=== PATIENT | female | born 1960 | race Caucasian/White ===

== ENCOUNTER 2023-07-15 13:52 | Observation (INO) ==
[2023-07-15] MEDS ORDERED: PHARMACY CONSULT - VANCOMYCIN XX SCH ×2 (15:00→17:00)
[2023-07-15 15:18] LABS: BASOPHILS # (AUTO) 0.1 X10^3/uL (0.0-0.1); BASOPHILS % (AUTO) 1.4 % (0.2-1.0); EOSINOPHILS # (AUTO) 0.2 x10^3/uL (0.0-0.2); EOSINOPHILS % (AUTO) 1.7 % (0.9-2.9); HEMATOCRIT 48.1 % (36.0-47.0); HEMOGLOBIN 15.7 g/dL (12.0-16.0); LYMPHOCYTES # (AUTO) 2.4 X10^3/uL (1.3-2.9); LYMPHOCYTES % (AUTO) 24.4 % (21.0-51.0); MEAN CORPUSCULAR HGB CONC 32.6 g/dL (33.0-35.0); MEAN CORPUSCULAR VOLUME 89.2 fL (80.0-100.0); MEAN PLATELET VOLUME 8.6 fL (7.4-11.0); MONOCYTES # (AUTO) 0.7 x10^3/uL (0.3-0.8); MONOCYTES % (AUTO) 6.9 % (0.0-13.0); NEUTROPHILS # (AUTO) 6.5 x10^3/uL (2.2-4.8); NEUTROPHILS % (AUTO) 65.6 % (42.0-75.0); PLATELET COUNT 288 X10^3/uL (150.0-450.0); RED BLOOD COUNT 5.39 X10^6/uL (3.5-5.4); RED CELL DISTRIBUTION WIDTH 15.1 % (11.6-16.5); WHITE BLOOD COUNT 9.9 X10^3/uL (3.6-10.0)
[2023-07-15 15:27] LABS: ALANINE AMINOTRANSFERASE 133 Units/L (12-78); ALBUMIN 3.6 g/dL (3.4-5.0); ALKALINE PHOSPHATASE 141 Units/L (46-116); ASPARTATE AMINO TRANSFERASE 100 Units/L (15-37); BLOOD UREA NITROGEN 11 mg/dL (7-18); CARBON DIOXIDE 28.1 mmol/L (21-32); CHLORIDE 103 mmol/L (98-107); COR NA(FOR HYPERGLY) 139 mmol/L (136-145); CREATININE 0.64 mg/dL (0.55-1.02); GLUCOSE 125 mg/dL (65-99); POTASSIUM 4.2 mmol/L (3.5-5.1); SODIUM 138 mmol/L (136-145); eGFR NON BLACK RACES > 60 (>60)
[2023-07-15] MEDS ORDERED: FLEXERIL TAB 10 MG PO PRN (16:23)
[2023-07-15] MEDS ORDERED: NovoLIN R (or HumuLIN R) SC PRN (16:29)
[2023-07-15 16:49] VITALS: BMI 38.0
[2023-07-15] MEDS ORDERED: LASIX PO SCH (17:00)
--- NOTE | 2023-07-15 17:30 | NOTE.SOAP ---
Soap Note Note for Day of Date of Exam: 07/15/23 Subjective Data Subjective Data: 62F presenting wiht a painful absess to the lateral aspect of her left foot. It developped not so long ago and she was seen by Dr. Walters in the office. It's so painful that he couldnt do the procedure in the office. She recently went to [facility] in the ER where a CTA was done and shown to have three vessel runoff to bilateral feet. An MRI and CTA was ordered in the hospital. Patient denies any constitutional symptoms at this time Objective Data Objective Data: Boggy spot noted on the lateral aspect of the left foot just lateral to the 5th metatarsal head. No crepitus or malodor or purulence at this time. There is an overlying hyperkeratotic tissuewith a possible wound. Feet are cold to touch but pulses are palpation. Neurovascular statuts intact Assessment Assessment: 62F with an abscess and cellulitis to the left foot Plan Plan: Patient seen bedside this afternoon. Explained the treatmetn options in great detail including the risks and benefits. Plan is to take the patient to the operating room tomorrow for an I&D. Patient can probably go home afterward. Patient on IV antibiotics. Pending recs from Vascular, appreciated. Patient will be NPO after midnight and is scheduled for an I&D of the left foot tomorrow at 11am
[2023-07-15] MEDS: LR 1,000 ML IV 1,000 ML IV SCH (18:29)
--- NOTE | 2023-07-15 19:04 | CT ---
EXAM: CTA BILATERAL LOWER EXTREMITIES WITHOUT AND WITH INTRAVENOUS CONTRASTHISTORY: Abscess. Question of lower extremity ischemia.TECHNIQUE: Spiral axial CT images are obtained through the distal abdomen, pelvis and bilateral lower extremities without and with the administration of intravenous contrast. Three-dimensional coronal, sagittal, and oblique images are reformatted. 3D, vascular images are reformatted.DOSIMETRY: Total DLP 1867.93 mGycm; CTDI 71.48 mGyCOMPARISON: None available.FINDINGS:CT ABDOMEN AND PELVIS: The patient is status post cholecystectomy. The liver, spleen, pancreas, and kidneys appear grossly unremarkable. Approximately 1.7 cm x 1.4 cm nonspecific right adrenal nodule (39 HU), and approximately 1.5 cm x 1.3 cm nonspecific left adrenal nodule (43 HU) which may represent an adrenal adenomas or metastatic nodules in the appropriate clinical setting; DDX includes adrenal adenocarcinomas, and pheochromocytomas. Consider follow-up evaluation with dedicated adrenal MRI for further characterization as clinically warranted.The uterus and adnexa appear grossly unremarkable for a CT scan. Consider follow-up dedicated imaging as clinically warranted. The urinary bladder is normal in size and contour. There is no free fluid, free air, herniation, mass lesion, or lymphadenopathy seen. No bony fracture deformities are seen.CTA PELVIS: There is severe aortoiliac atherosclerosis marked by calcified and noncalcified mural plaques. No distal aortic pseudoaneurysm, aneurysm, dissection, or occlusion is seen. There are multifocal mild segmental luminal stenoses seen within the aorta and iliac vessels, but no potentially hemodynamically significant or greater than 50% luminal stenosis is seen.There is severe calcified atherosclerotic mural plaques seen at the celiac axis, SMA, and bilateral renal artery origins (right greater than left) with suggestion of potentially hemodynamically significant (or greater than 50%) stenoses at the right renal artery origin. Axial image 26-32, series 7; coronal image 57-60, series 9. Clinical correlation is advised.CTA LOWER EXTREMITIES: The common femoral arteries, superficial femoral arteries, and profunda femoral arteries are patent bilaterally. The popliteal arteries and proximal trifurcation runoff vessels are unremarkable. The middle and distal trifurcation runoff vessels are excluded from [id number].IMPRESSION:1. Severe aortoiliac atherosclerosis marked by calcified and noncalcified mural plaques.2. Multifocal mild segmental luminal stenoses seen within the aorta and iliac vessels, but no potentially hemodynamically significant or greater than 50% luminal stenosis is seen.3. No distal aortic pseudoaneurysm, aneurysm, dissection, or occlusion is seen.4. Severe calcified atherosclerotic mural plaques seen at the celiac axis, SMA, and bilateral renal artery origins (right greater than left) with suggestion of potentially hemodynamically significant (or greater than 50%) stenoses at the right renal artery origin. Axial image 26-32, series 7; coronal image 57-60, series 9. Clinical correlation is advised.5. Bilateral [employer], SFA, PFA, popliteal arteries, and proximal trifurcation runoff vessels are widely patent.6. Approximately 1.7 cm x 1.4 cm nonspecific right adrenal nodule (39 HU), and approximately 1.5 cm x 1.3 cm nonspecific left adrenal nodule (43 HU) which may represent an adrenal adenomas or metastatic nodules in the appropriate clinical setting; DDX includes adrenal adenocarcinomas, and pheochromocytomas. Consider follow-up evaluation with dedicated adrenal MRI for further characterization as clinically warranted.THIS IS AN ELECTRONICALLY VERIFIED FINAL REPORT07/15/2023 7:00 PM - Electronically signed by Tawana Bergman
[2023-07-15] MEDS: CORDARONE TAB 200 MG PO SCH (19:16)
[2023-07-15] MEDS: LASIX PO SCH (19:16)
[2023-07-15] MEDS: VANCOMYCIN IV *PREMIX 1 G/200 ML BAG 1 G/200 ML PIGGYBACK IV SCH (19:16)
[2023-07-15] MEDS ORDERED: PULMICORT NEB TX 0.5 MG NEB ONE (19:33)
[2023-07-15] MEDS ORDERED: PROVENTIL NEB TX 0.083% 2.5MG/ 3ML ONE (19:33)
[2023-07-15] MEDS: PROVENTIL NEB TX 0.083% 2.5MG/ 3ML NEB SCH (20:10)
[2023-07-15] MEDS: PULMICORT NEB TX 0.5 MG NEB SCH (20:10)
[2023-07-15] MEDS: OMNIPAQUE 350 mg/mL 100 mL BTL 100 ML ONE (20:25)
[2023-07-15] MEDS: OMNIPAQUE 350 mg/mL 50 mL BTL 50 ML ONE (20:25)
[2023-07-15] MEDS: NS 100 ML IV 100 ML ONE (20:25)
[2023-07-15] MEDS: LOPRESSOR TAB 50 MG PO SCH (20:35)
[2023-07-15] MEDS: DESYREL PO SCH (20:35)
[2023-07-15] MEDS ORDERED: PROVENTIL NEB TX 0.083% 2.5MG/ 3ML NEB SCH (21:00)
[2023-07-15] MEDS: CYMBALTA PO SCH (22:06)
--- NOTE | 2023-07-16 00:49 | DR.H&P ---
H&P History & Physical for Day of: H&P Date: 07/15/23 Chief Complaint Chief Complaint: Non -healing wound to the left plantar 5th metatarsal head. Allergies Allergies Allergy/AdvReac Type Severity Reaction Status Date / Time sulfamethoxazole Allergy Verified 07/15/23 16:23 [From Bactrim] trimethoprim [From Bactrim] Allergy Verified 07/15/23 16:23 History of Present Illness History of Present Illness: Female with non-healing wound to the left fifth meta tarsal plantar surface. Patient is diabetic. Mild redness around this area. Patient seen in the emergency room in [place] greater than 1 a week ago and at that time was transferred urgently via helicopter to [place] with question of arterial insufficiency. Patient was seen and treated but no arterial intervention performed. Patient seen in the office of Dr. Walters today with these findings and was transferred to our hospital at [place] for admission. Patient has a history of diabetes, history of myocardial infarction , multiple coronary stents and tobacco abuse . Has COPD, depression Past Medical History Past Medical History: COPD, Coronary Artery Disease, Depression, Diabetes, Dyslipidemia and [place] Past Surgical History Surgical History: Cholecystectomy and Other Additional Surgical History: Multiple ooronary stents Family History Family Medical History: [place], Coronary Artery Disease and Hypertension Social History Does patient currently use any type of tobacco product: Yes Have you used tobacco products in the last 12 months: Yes Type of Tobacco Use: Cigarettes How many years tobacco product used: 1 Alcohol Use: None Drug Use: None Medications Home Medications: Home Medications Medication Instructions Recorded Confirmed Type albuterol 90 mcg/actuation aerosol 90 mcg inhalation BID PRN 07/15/23 07/15/23 History inhaler amiodarone 200 mg tablet 200 mg PO BID 07/15/23 07/15/23 History apixaban 5 mg tablet (Eliquis) 5 mg PO BID 07/15/23 07/15/23 History atorvastatin 40 mg tablet (Lipitor) 40 mg PO QDAY 07/15/23 07/15/23 History bupropion HCl 100 mg tablet,12 hr 200 mg PO QDAY 07/15/23 07/15/23 History sustained-release (Wellbutrin SR) clopidogrel 75 mg tablet (Plavix) 75 mg PO QDAY 07/15/23 07/15/23 History cyclobenzaprine 10 mg tablet 10 mg PO TID PRN muscle spasm 07/15/23 07/15/23 History diltiazem HCl 120 mg tablet 120 mg PO QDAY 07/15/23 07/15/23 History doxycycline hyclate 100 mg capsule 100 mg PO BID 07/15/23 07/15/23 History duloxetine 20 mg capsule,delayed 20 mg PO BID 07/15/23 07/15/23 History release sprinkle furosemide 20 mg tablet (Lasix) 20 mg PO BID 07/15/23 07/15/23 History isosorbide mononitrate 30 mg 15 mg PO QAM 07/15/23 07/15/23 History tablet,extended release 24 hr meloxicam 7.5 mg tablet 7.5 mg PO QDAY 07/15/23 07/15/23 History metformin 850 mg tablet 850 mg PO QDAY 07/15/23 07/15/23 History metoprolol tartrate 50 mg tablet 50 mg PO BID 07/15/23 07/15/23 History paroxetine HCl 20 mg tablet 20 mg PO QDAY 07/15/23 07/15/23 History potassium chloride 10 mEq 10 meq PO QDAY 07/15/23 07/15/23 History capsule,extended release pramipexole 0.5 mg tablet 1 mg PO QDAY 07/15/23 07/15/23 History tiotropium 2.5 mcg-olodaterol 2.5 1 puff inhalation QDAY 07/15/23 07/15/23 History mcg/actuation mist for inhalation (Stiolto Respimat) trazodone 50 mg tablet 50 mg PO BID 07/15/23 07/15/23 History Labs 07/15/23 15:05 07/15/23 15:05 Labs: Laboratory WBC 9.9 X10^3/uL (3.6-10.0) 07/15/23 15:05 RBC 5.39 X10^6/uL (3.5-5.4) 07/15/23 15:05 Hgb 15.7 g/dL (12.0-16.0) 07/15/23 15:05 Hct 48.1 % (36.0-47.0) H 07/15/23 15:05 MCV 89.2 fL (80.0-100.0) 07/15/23 15:05 MCH 29.0 pg (27.0-34.0) 07/15/23 15:05 MCHC 32.6 g/dL (33.0-35.0) L 07/15/23 15:05 RDW 15.1 % (11.6-16.5) 07/15/23 15:05 Plt Count 288 X10^3/uL (150.0-450.0) 07/15/23 15:05 MPV 8.6 fL (7.4-11.0) 07/15/23 15:05 Neut % (Auto) 65.6 % (42.0-75.0) 07/15/23 15:05 Lymph % (Auto) 24.4 % (21.0-51.0) 07/15/23 15:05 [place] % (Auto) 6.9 % (0.0-13.0) 07/15/23 15:05 Eos % (Auto) 1.7 % (0.9-2.9) 07/15/23 15:05 Baso % (Auto) 1.4 % (0.2-1.0) H 07/15/23 15:05 Neut # (Auto) 6.5 x10^3/uL (2.2-4.8) H 07/15/23 15:05 Lymph # (Auto) 2.4 X10^3/uL (1.3-2.9) 07/15/23 15:05 [place] # (Auto) 0.7 x10^3/uL (0.3-0.8) 07/15/23 15:05 Eos # (Auto) 0.2 x10^3/uL (0.0-0.2) 07/15/23 15:05 Baso # (Auto) 0.1 X10^3/uL (0.0-0.1) 07/15/23 15:05 Absolute Nucleated RBC 0.0 /100WBC 07/15/23 15:05 Sodium 138 mmol/L (136-145) 07/15/23 15:05 Corrected Sodium 139 mmol/L (136-145) 07/15/23 15:05 Potassium 4.2 mmol/L (3.5-5.1) 07/15/23 15:05 Chloride 103 mmol/L (98-107) 07/15/23 15:05 Carbon Dioxide 28.1 mmol/L (21-32) 07/15/23 15:05 BUN 11 mg/dL (7-18) 07/15/23 15:05 Creatinine 0.64 mg/dL (0.55-1.02) 07/15/23 15:05 Est GFR (MDRD) Af Amer > 60 (>60) 07/15/23 15:05 Est GFR (MDRD) Non-Af > 60 (>60) 07/15/23 15:05 Glucose 125 mg/dL (65-99) H 07/15/23 15:05 POC Glucose (mg/dL) 131 mg/dL (65-99) H 07/15/23 20:35 Calcium 9.0 mg/dL (8.5-10.1) 07/15/23 15:05 Corrected Calcium TNP 07/15/23 15:05 Total Bilirubin 0.40 mg/dL (0.2-1.0) 07/15/23 15:05 AST 100 Units/L (15-37) H 07/15/23 15:05 ALT 133 Units/L (12-78) H 07/15/23 15:05 Alkaline Phosphatase 141 Units/L (46-116) H 07/15/23 15:05 Total Protein 8.0 g/dL (6.4-8.2) 07/15/23 15:05 Albumin 3.6 g/dL (3.4-5.0) 07/15/23 15:05 Globulin 4.4 g/dL (2.5-4.5) 07/15/23 15:05 Albumin/Globulin Ratio 0.8 Ratio (1.1-2.1) L 07/15/23 15:05 Review of Systems Constitutional: See HPI Eyes: No Symptoms Reported ENT: No Symptoms Reported Respiratory: See HPI Cardiovascular: See HPI Gastrointestinal: See HPI Genitourinary: No Symptoms Reported Musculoskeletal: No Symptoms Reported Skin: No Symptoms Reported Neurological: No Symptoms Reported Physical Exam Vital Signs: Vital Signs Temperature 97.7 F Pulse Rate [Bilateral Radial] 59 Pulse Rate [Bilateral Radial] 69 Pulse Rate [Bilateral Radial] 76 Pulse Rate [Bilateral Radial] 70 Pulse Rate [Bilateral Radial] 69 Pulse Rate [Bilateral Radial] 68 Pulse Rate [Bilateral Radial] 63 Pulse Rate [Bilateral Radial] 64 Pulse Rate 68 Pulse Rate 70 Pulse Rate 67 Respiratory Rate 24 Respiratory Rate 26 Respiratory Rate 23 Respiratory Rate 25 Respiratory Rate 27 Respiratory Rate 25 Respiratory Rate 23 Respiratory Rate 20 Respiratory Rate 20 Respiratory Rate 22 Blood Pressure [Left Arm] 127/60 Blood Pressure [Left Arm] 160/79 Blood Pressure [Left Arm] 143/70 Blood Pressure [Left Arm] 161/79 Blood Pressure [Left Arm] 158/91 Blood Pressure [Left Arm] 189/89 Blood Pressure [Left Arm] 187/91 Blood Pressure [Left Arm] 171/86 Blood Pressure 158/91 Blood Pressure 158/91 O2 Sat by Pulse Oximetry 96 O2 Sat by Pulse Oximetry 95 O2 Sat by Pulse Oximetry 96 O2 Sat by Pulse Oximetry 100 O2 Sat by Pulse Oximetry 100 O2 Sat by Pulse Oximetry 98 O2 Sat by Pulse Oximetry 98 O2 Sat by Pulse Oximetry 99 O2 Sat by Pulse Oximetry 100 O2 Sat by Pulse Oximetry 100 O2 Sat by Pulse Oximetry 98 CTA - diffuse aorto-iliac artery disease , no significant obstruction of iliac arteries, No significant stenosis of arteries either leg with 3 vessel runoff both legs. Oriented: Normal, Time, Person and Place Eyes: Normal Ear: Normal Nose: Normal Throat: Normal Respiratory: Clear Throughout Cardiovascular: Other (Hx of [place] and at least 5 coronary stents , palpable femoral pulses bilaterally, palpable posterior tibial arteries bilaterally) : Normal Auscultation: Bowel Sounds: Normal Palpation: Normal Tenderness: Normal Skin: Normal Musculoskeletal: Normal Psychiatric: Normal Mood Description: Calm Affect: Normal Assessment/Plan (1) Diabetic ulcer of left foot: Status: Acute Plan: IV antibiotics. Consulted Podiatry and they are planning debridement . No obvious correctable arterial lesion (2) Cellulitis of left foot: Status: Acute Plan: IV antibiotics (3) Type 2 diabetes mellitus without complications: Status: Acute (4) Old myocardial infarction: Status: Acute Plan: home meds (5) Hyperlipidemia: Status: Acute Plan: home meds (6) Chronic obstructive pulmonary disease, unspecified: Status: Acute Plan: home meds (7) Depression: Status: Acute Plan: home meds (8) Essential (primary) hypertension: Status: Acute Plan: home meds (9) Tobacco abuse: Status: Acute Plan: [place] her to quit smoking . Explained the cardiovascular risks Review H&P Reviewed: Yes Patient was examined?: Yes
[2023-07-16] MEDS ORDERED: HIBICLENS WASH ONE (01:38)
[2023-07-16] MEDS: HIBICLENS WASH EXT ONE (02:23)
[2023-07-16] MEDS: NICOTINE PATCH TD SCH (02:24)
[2023-07-16] MEDS: CARDIZEM CD 120 MG 24-HR PO SCH (08:20)
[2023-07-16] MEDS ORDERED: DUONEB 0.5 MG/3 MG (3 mL) NEB SCH (09:00)
[2023-07-16] MEDS ORDERED: STERILE WATER IRRIGATION IR ONE (10:18)
[2023-07-16] MEDS: IMDUR PO SCH (10:19)
[2023-07-16] MEDS: LIPITOR TAB 40 MG PO SCH (10:20)
[2023-07-16] MEDS: MICRO K EXTEN CAP 10 MEQ PO SCH (10:20)
[2023-07-16] MEDS: PLAVIX PO SCH (10:20)
[2023-07-16] MEDS: PATIENT'S HOME MEDICATION PO SCH (10:21)
[2023-07-16] MEDS: MIRAPEX TAB 1 MG PO SCH (10:21)
[2023-07-16] MEDS: PAXIL PO SCH (10:21)
[2023-07-16] MEDS: ANCEF VIAL 1 GRAM ONE (11:09)
[2023-07-16] MEDS: NS 100 ML IV 100 ML ONE (11:09)
--- NOTE | 2023-07-16 11:10 | EKG ---
Test Reason : surgical procedure Blood Pressure : */* mmHG Vent. Rate : 60 BPM Atrial Rate : 60 BPM P-R Int : 176 ms QRS Dur : 88 ms QT Int : 500 ms P-R-T Axes : * 75 79 degrees QTc Int : 500 ms Normal sinus rhythm Low voltage QRS Possible Anterolateral infarct , age undetermined Nonspecific T wave abnormality Abnormal ECG No previous ECGs available Confirmed by Flako Lloyd MD ([id number]) on 07/16/2023 11:36:50 AM Referred By: Confirmed By: Flako Lloyd MD
--- NOTE | 2023-07-16 11:21 | RAD ---
EXAM:CHEST, 1 VIEWHISTORY:PRE-OP FOR surgical procedure ON LEFT FOOT;COMPARISON:No relevant prior studies were available for comparison at the time of interpretation.TECHNIQUE:CHEST, 1 VIEWFINDINGS:Chest:Lines and tubes: Cardiac leads overlie the chest.Mediastinum: Cardiac and mediastinal shadow is within normal limits for size and contour.Pulmonary vessels: No pulmonary vascular congestion.Lung devlin: No suspicious airspace opacity.Pleura: No effusion. No pneumothorax.Bones and soft tissues: No acute osseous or soft tissue abnormality.IMPRESSION:1. No acute cardiopulmonary abnormalityTHIS IS AN ELECTRONICALLY VERIFIED FINAL REPORT07/16/2023 11:17 AM - Electronically signed by Jac Mckeon MD
[2023-07-16] MEDS: MARCAINE 0.25% INJ ONE (11:27)
[2023-07-16] MEDS: VERSED ONE (11:27)
[2023-07-16] MEDS: NS 1,000 ML IV 1,000 ML ONE (11:27)
[2023-07-16] MEDS: BETADINE SOLN ONE (11:27)
[2023-07-16] MEDS: FENTANYL VIAL INJ 100 mcg ONE (11:27)
[2023-07-16] MEDS: DIPRIVAN VIAL 20 ML ONE (11:27)
[2023-07-16] MEDS: KETAMINE 50 MG/5 ML-NACL SYRNG ONE (11:27)
[2023-07-16 12:44] VITALS: TEMP 97.3
--- NOTE | 2023-07-16 13:19 | W.DIS.FURT ---
Summary of Discharge Discharge Summary of Date Date of Exam: 07/16/23 Admission Date Date of Admission: 07/15/23 Admission Diagnosis Hospital Course: This patient is a 61 female with significant history of cardiovascular disease , significant tobacco abuse and diabetes who presented with a diabetic ulcer to the left plantar surface over the 5th metatarsal head with mild cellulitis. In the past there had been question of vascular insufficiency but CT angiogram was normal .Patient underwent debridement of this wound and will be discharged home on PO antibiotics as per Podiatry and will follow up with them in 1 week . Will also follow with me in 1 week as well . Vital Signs: Vital Signs (72 hours) 07/15/23 14:45 07/15/23 16:00 07/15/23 14:45 Temperature 98.2 F Pulse Rate Pulse Rate [Bilateral Radial] 65 64 Respiratory Rate 23 22 Blood Pressure Blood Pressure [Left Arm] 186/84 171/86 Blood Pressure [Right Arm] O2 Sat by Pulse Oximetry 98 98 Oxygen Delivery Method Room Air Room Air Room Air Oxygen Flow Rate FIO2% 07/15/23 17:00 07/15/23 18:00 07/15/23 18:00 Temperature Pulse Rate 67 Pulse Rate [Bilateral Radial] 63 68 Respiratory Rate 20 20 23 Blood Pressure 158/91 Blood Pressure [Left Arm] 187/91 189/89 Blood Pressure [Right Arm] O2 Sat by Pulse Oximetry 100 100 99 Oxygen Delivery Method Room Air Room Air Room Air Oxygen Flow Rate FIO2% 07/15/23 19:00 07/15/23 20:10 07/15/23 20:10 Temperature Pulse Rate 70 68 Pulse Rate [Bilateral Radial] Respiratory Rate 25 H Blood Pressure 158/91 Blood Pressure [Left Arm] Blood Pressure [Right Arm] O2 Sat by Pulse Oximetry 98 100 Oxygen Delivery Method Room Air Room Air Oxygen Flow Rate FIO2% 07/15/23 22:30 07/15/23 19:00 07/15/23 20:00 Temperature 97.7 F Pulse Rate Pulse Rate [Bilateral Radial] 69 70 Respiratory Rate 27 H 25 H Blood Pressure Blood Pressure [Left Arm] 158/91 161/79 Blood Pressure [Right Arm] O2 Sat by Pulse Oximetry 98 100 Oxygen Delivery Method Nasal Cannula Room Air Room Air Oxygen Flow Rate 2 FIO2% 28 07/15/23 21:00 07/15/23 22:00 07/15/23 19:00 Temperature Pulse Rate Pulse Rate [Bilateral Radial] 76 69 Respiratory Rate 23 26 H Blood Pressure Blood Pressure [Left Arm] 143/70 160/79 Blood Pressure [Right Arm] O2 Sat by Pulse Oximetry 96 95 Oxygen Delivery Method Room Air Room Air Room Air Oxygen Flow Rate FIO2% 07/15/23 23:00 07/16/23 00:00 07/16/23 01:00 Temperature 97.9 F Pulse Rate Pulse Rate [Bilateral Radial] 59 L 58 L 58 L Respiratory Rate 24 18 22 Blood Pressure Blood Pressure [Left Arm] 127/60 179/86 144/72 Blood Pressure [Right Arm] O2 Sat by Pulse Oximetry 96 99 94 L Oxygen Delivery Method Room Air Room Air Room Air Oxygen Flow Rate FIO2% 07/16/23 02:00 07/16/23 03:00 07/16/23 04:00 Temperature 98.2 F Pulse Rate Pulse Rate [Bilateral Radial] 58 L 61 59 L Respiratory Rate 22 19 14 Blood Pressure Blood Pressure [Left Arm] 157/82 189/85 155/67 Blood Pressure [Right Arm] O2 Sat by Pulse Oximetry 98 98 94 L Oxygen Delivery Method Room Air Room Air Room Air Oxygen Flow Rate FIO2% 07/16/23 05:00 07/16/23 06:00 07/16/23 07:00 Temperature 98.1 F Pulse Rate Pulse Rate [Bilateral Radial] 58 L 60 59 L Respiratory Rate 16 17 14 Blood Pressure Blood Pressure [Left Arm] 167/73 179/78 165/73 Blood Pressure [Right Arm] O2 Sat by Pulse Oximetry 95 97 94 L Oxygen Delivery Method Room Air Room Air Room Air Oxygen Flow Rate FIO2% 07/16/23 08:00 07/16/23 07:00 07/16/23 08:46 Temperature 97.8 F Pulse Rate Pulse Rate [Bilateral Radial] 62 Respiratory Rate 22 Blood Pressure Blood Pressure [Left Arm] 163/74 Blood Pressure [Right Arm] O2 Sat by Pulse Oximetry 97 Oxygen Delivery Method Room Air Room Air Room Air Oxygen Flow Rate FIO2% 07/16/23 08:46 07/16/23 10:55 07/16/23 09:00 Temperature 98 F 98.3 F Pulse Rate 82 58 L Pulse Rate [Bilateral Radial] 63 Respiratory Rate 16 25 H Blood Pressure 164/85 Blood Pressure [Left Arm] 141/94 Blood Pressure [Right Arm] O2 Sat by Pulse Oximetry 99 96 99 Oxygen Delivery Method Room Air Room Air Oxygen Flow Rate FIO2% 07/16/23 10:00 07/16/23 12:00 Temperature 98.0 F 97.3 F L Pulse Rate Pulse Rate [Bilateral Radial] 61 57 L Respiratory Rate 18 15 Blood Pressure Blood Pressure [Left Arm] 173/82 Blood Pressure [Right Arm] 143/60 O2 Sat by Pulse Oximetry 97 98 Oxygen Delivery Method Room Air Nasal Cannula Oxygen Flow Rate FIO2% Labs: Laboratory Last Values WBC 9.9 X10^3/uL (3.6-10.0) 07/15/23 15:05 RBC 5.39 X10^6/uL (3.5-5.4) 07/15/23 15:05 Hgb 15.7 g/dL (12.0-16.0) 07/15/23 15:05 Hct 48.1 % (36.0-47.0) H 07/15/23 15:05 MCV 89.2 fL (80.0-100.0) 07/15/23 15:05 MCH 29.0 pg (27.0-34.0) 07/15/23 15:05 MCHC 32.6 g/dL (33.0-35.0) L 07/15/23 15:05 RDW 15.1 % (11.6-16.5) 07/15/23 15:05 Plt Count 288 X10^3/uL (150.0-450.0) 07/15/23 15:05 MPV 8.6 fL (7.4-11.0) 07/15/23 15:05 Neut % (Auto) 65.6 % (42.0-75.0) 07/15/23 15:05 Lymph % (Auto) 24.4 % (21.0-51.0) 07/15/23 15:05 Ritchie % (Auto) 6.9 % (0.0-13.0) 07/15/23 15:05 Eos % (Auto) 1.7 % (0.9-2.9) 07/15/23 15:05 Baso % (Auto) 1.4 % (0.2-1.0) H 07/15/23 15:05 Neut # (Auto) 6.5 x10^3/uL (2.2-4.8) H 07/15/23 15:05 Lymph # (Auto) 2.4 X10^3/uL (1.3-2.9) 07/15/23 15:05 Ritchie # (Auto) 0.7 x10^3/uL (0.3-0.8) 07/15/23 15:05 Eos # (Auto) 0.2 x10^3/uL (0.0-0.2) 07/15/23 15:05 Baso # (Auto) 0.1 X10^3/uL (0.0-0.1) 07/15/23 15:05 Absolute Nucleated RBC 0.0 /100WBC 07/15/23 15:05 Sodium 138 mmol/L (136-145) 07/15/23 15:05 Corrected Sodium 139 mmol/L (136-145) 07/15/23 15:05 Potassium 4.2 mmol/L (3.5-5.1) 07/15/23 15:05 Chloride 103 mmol/L (98-107) 07/15/23 15:05 Carbon Dioxide 28.1 mmol/L (21-32) 07/15/23 15:05 BUN 11 mg/dL (7-18) 07/15/23 15:05 Creatinine 0.64 mg/dL (0.55-1.02) 07/15/23 15:05 Est GFR (MDRD) Af Amer > 60 (>60) 07/15/23 15:05 Est GFR (MDRD) Non-Af > 60 (>60) 07/15/23 15:05 Glucose 125 mg/dL (65-99) H 07/15/23 15:05 POC Glucose (mg/dL) 147 mg/dL (65-99) H 07/16/23 10:52 Calcium 9.0 mg/dL (8.5-10.1) 07/15/23 15:05 Corrected Calcium TNP 07/15/23 15:05 Total Bilirubin 0.40 mg/dL (0.2-1.0) 07/15/23 15:05 AST 100 Units/L (15-37) H 07/15/23 15:05 ALT 133 Units/L (12-78) H 07/15/23 15:05 Alkaline Phosphatase 141 Units/L (46-116) H 07/15/23 15:05 Total Protein 8.0 g/dL (6.4-8.2) 07/15/23 15:05 Albumin 3.6 g/dL (3.4-5.0) 07/15/23 15:05 Globulin 4.4 g/dL (2.5-4.5) 07/15/23 15:05 Albumin/Globulin Ratio 0.8 Ratio (1.1-2.1) L 07/15/23 15:05 Reason For Visit: diabetic ulcer left foot Discharge Date Discharge Date: 07/16/23 Discharge Diagnosis All Active Problems (Updated 07/16/23 @ 00:47 by John See) Tobacco abuse (Acute) Essential (primary) hypertension (Acute) Depression (Acute) Chronic obstructive pulmonary disease, unspecified (Acute) Hyperlipidemia (Acute) Old myocardial infarction (Acute) Type 2 diabetes mellitus without complications (Acute) Cellulitis of left foot (Acute) Diabetic ulcer of left foot (Acute) Plan of Treatment: Continue with present treatment and follow up plan. Pt is to keep follow up appointment as instructed and take medications as ordered. Discharge Medications Discharge Medications: sulfamethoxazole [From Bactrim] Allergy (Verified 07/15/23 16:23) trimethoprim [From Bactrim] Allergy (Verified 07/15/23 16:23) CONTINUE taking the following medications albuterol 90 mcg/actuation aerosol inhaler 90 mcg inhalation BID PRN 07/15/23 [History] amiodarone 200 mg tablet 200 mg PO BID 07/15/23 [History] apixaban 5 mg tablet (Eliquis) 5 mg PO BID 07/15/23 [History] atorvastatin 40 mg tablet (Lipitor) 40 mg PO QDAY 07/15/23 [History] bupropion HCl 100 mg tablet,12 hr sustained-release (Wellbutrin SR) 200 mg PO QDAY 07/15/23 [History] clopidogrel 75 mg tablet (Plavix) 75 mg PO QDAY 07/15/23 [History] cyclobenzaprine 10 mg tablet 10 mg PO TID PRN muscle spasm 07/15/23 [History] diltiazem HCl 120 mg tablet 120 mg PO QDAY 07/15/23 [History] doxycycline hyclate 100 mg capsule 100 mg PO BID 07/15/23 [History] duloxetine 20 mg capsule,delayed release sprinkle 20 mg PO BID 07/15/23 [History] furosemide 20 mg tablet (Lasix) 20 mg PO BID 07/15/23 [History] isosorbide mononitrate 30 mg tablet,extended release 24 hr 15 mg PO QAM 07/15/23 [History] meloxicam 7.5 mg tablet 7.5 mg PO QDAY 07/15/23 [History] metformin 850 mg tablet 850 mg PO QDAY 07/15/23 [History] metoprolol tartrate 50 mg tablet 50 mg PO BID 07/15/23 [History] paroxetine HCl 20 mg tablet 20 mg PO QDAY 07/15/23 [History] potassium chloride 10 mEq capsule,extended release 10 meq PO QDAY 07/15/23 [History] pramipexole 0.5 mg tablet 1 mg PO QDAY 07/15/23 [History] tiotropium 2.5 mcg-olodaterol 2.5 mcg/actuation mist for inhalation (Stiolto Respimat) 1 puff inhalation QDAY 07/15/23 [History] trazodone 50 mg tablet 50 mg PO BID 07/15/23 [History] Discharge Disposition Assessment: see hospital course above Discharge Plan Discharge Plan Hospital Course: This patient is a 61 female with significant history of cardiovascular disease , significant tobacco abuse and diabetes who presented with a diabetic ulcer to the left plantar surface over the 5th metatarsal head with mild cellulitis. In the past there had been question of vascular insufficiency but CT angiogram was normal .Patient underwent debridement of this wound and will be discharged home on PO antibiotics as per Podiatry and will follow up with them in 1 week . Will also follow with me in 1 week as well . Patient Disposition: 01 HOME, SELF-CARE Condition: Stable Health Concerns: Post Hospitalization: new medications and changes needed to prevent readmission or further decline. Pt educated and given instructions on all concerns. Plan of Treatment: Continue with present treatment and follow up plan. Pt is to keep follow up appointment as instructed and take medications as ordered. Assessment: see hospital course above Prescription drug monitoring program results: PDMP reviewed and no concerns identified Prescriptions: New amoxicillin-pot clavulanate [Augmentin] 500-125 mg tablet 1 tab PO BID Qty: 14 0RF oxycodone-acetaminophen [Percocet] 5-325 mg tablet 1 tab PO Q6H MDD 4 PRNQty: 30 0RF Continued Eliquis 5 mg Tablet 5 mg PO BID atorvastatin [Lipitor] 40 mg Tablet 40 mg PO QDAY meloxicam [Mobic] 7.5 mg Tablet 7.5 mg PO QDAY trazodone 50 mg Tablet 50 mg PO BID clopidogrel [Plavix] 75 mg Tablet 75 mg PO QDAY amiodarone 200 mg Tablet 200 mg PO BID pramipexole 0.5 mg Tablet 1 mg PO QDAY paroxetine HCl 20 mg Tablet 20 mg PO QDAY metformin 850 mg Tablet 850 mg PO QDAY potassium chloride 10 mEq Capsule, Extended Release 10 meq PO QDAY furosemide [Lasix] 20 mg Tablet 20 mg PO BID duloxetine 20 mg Capsule, Delayed Rel Sprinkle 20 mg PO BID albuterol 90 mcg/actuation Aerosol 90 mcg INHALATION BID PRN Stiolto Respimat 2.5-2.5 mcg/actuation Mist 1 puff INHALATION QDAY diltiazem HCl 120 mg Tablet 120 mg PO QDAY metoprolol tartrate 50 mg Tablet 50 mg PO BID isosorbide mononitrate 30 mg Tablet Extended Release 24 Hr 15 mg PO QAM cyclobenzaprine 10 mg tablet 10 mg PO TID PRN (Reason: muscle spasm) bupropion HCl [Wellbutrin SR] 100 mg Tablet Sustained-Release 12 Hr 200 mg PO QDAY doxycycline hyclate 100 mg Capsule 100 mg PO BID Follow ups/Referrals Follow ups/Referrals: ABDOULAYE JOYNER [Primary Care Provider] - 1 WEEK Instructions Stand Alone Forms: Excuse From Work or School, Post Hospital Follow Up Care
[2023-07-16 14:17] VITALS: BP 157/75; PULSE 59; RESP 19; O2SAT 100
[2023-07-16] MEDS ORDERED: PHARMACY COMMENT IV NR (21:30)
== END 2023-07-16 14:25 | disposition home or self-care (01) ==
LOC: INTOOBSV 13:55 → ICU 13:55
PROVIDERS: ADMIT Surgery; ATTEND Surgery
DX: L03.116 Cellulitis of left lower limb; E11.621 Type 2 diabetes mellitus with foot ulcer; I25.2 Old myocardial infarction; L97.429 Non-pressure chronic ulcer of left heel and midfoot with unspecified severity; J44.9 Chronic obstructive pulmonary disease, unspecified; E78.5 Hyperlipidemia, unspecified; I99.8 Other disorder of circulatory system; Z72.0 Tobacco use; F32.A Depression, unspecified; E11.65 Type 2 diabetes mellitus with hyperglycemia; I10 Essential (primary) hypertension